=== PATIENT | male | born 1995 | race Two or more races ===

== ENCOUNTER 2016-05-27 18:56 | Emergency (ER) | payer SELFPAY ==
[2016-05-27 19:54] VITALS: BMI 21.2
[2016-05-27 20:16] LABS: AUTOMATED BASOPHIL 0.2 % (0-2); AUTOMATED EOSINOPHIL 0.2 % (0-5); AUTOMATED LYMPH 11.8 % (17-44); AUTOMATED MONOCYTE 8.7 % (3-10); AUTOMATED NEUTROPHIL 79.1 % (45-76); MPV 8.3 fL (7.4-10.4)
[2016-05-27] MEDS ORDERED: ONDANSETRON HCL 4 MG ODT TAB PO ONE (20:29)
--- NOTE | 2016-05-27 20:32 | EDPRACDOC ---
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 STATES WHAT EVER HE DRINKS OR TRIES TO EAT HE VOMITS. Symptoms Occured: Reports: Spontaneous Duration: Reports: Since Onset Emesis: Reports: Bilious, Food Particles Recent: Reports: None Pain Quality: Reports: Cramping (INTERMITTENT MOSTLY WITH PO INTAKE) Pain Severity: Mild Pain Location: Reports: Diffuse Associated Signs and Symptoms: Reports: Fever, Chills, Nausea, Vomiting, Diarrhea Oral Intake: Decreased Urinary Output: Normal <Liana Fish - Last Filed: 05/27/16 20:29> <Bishop Musa - Last Filed: 05/27/16 22:00> - General Information Chief Complaint: Nausea,Vomiting,Diarrhea Stated Complaint: NAUSEATED WITH FEVER & ABD PAIN Time Seen by Provider: 05/27/16 20:24 Home Medications: Home Medications Ondansetron HCl [Zofran] 4 mg PO Q6H PRN #12 tab 05/27/16 Promethazine [Phenergan] 25 mg RI Q6H PRN #12 supp 05/27/16 Allergies/Adverse Reactions: Allergies Allergy/AdvReac Type Severity Reaction Status Date / Time No Known Allergies Allergy Verified 05/27/16 19:54 ED Past Medical History - History Reviewed Yes Nurses notes reviewed and agree except as marked Travel Outside of [place] in the Last 3 Months?: No No Past Medical History: Yes Patient has no past medical history - Patient Medical History Psychological History: Denies: Depression Systemic History: Denies: Cancer Surgical History: Denies: Hysterectomy - Social Medical History Smoking Status: Never smoker ETOH: None Substance Abuse: None Lives With: Other Lives In: Home <Liana Fish - Last Filed: 05/27/16 20:29> EDM Review of Systems - Review of Systems ROS Negative Except as Marked: Yes All systems reviewed and were negative except as marked Constitutional: Chills, Fever, Weakness. negative: Fatigue, Loss of Appetite Eyes: No Symptoms Reported. negative: Redness, Blurred Vision, Double Vision, Discharge, Pain, Light Sensitive, Photophobia Ears: No Symptoms Reported. negative: Pain, Hearing Loss, Drainage, Ear Pulling Throat: No Symptoms Reported. negative: Pain, Swelling Nose: No Symptoms Reported. negative: Congestion, Bleeding, Discharge, Injection, Swelling, Deformity, Ecchymosis, Tender, Abrasion, Laceration Mouth: No Symptoms Reported. negative: Pain, Drooling Respiratory: No Symptoms Reported. negative: Cough, Brassy Cough, Barky Cough, Shortness of Breath, Wheezing, Hemoptysis Cardiovascular: No Symptoms Reported. negative: Chest Pain, Palpitations, Syncope, Edema, Orthopnea, PND, Skin Mottling, Cyanosis Gastrointestinal: Diarrhea, Nausea, Pain (INTERMITTENT CRAMPING WITH PO INTAKE) , Vomiting. negative: Constipation, Formula Intolerance, Melena Genitourinary: No Symptoms Reported. negative: Dysuria, Hematuria, Frequency, Discharge, Bleeding, Testicular Pain, Neurological: No Symptoms Reported. negative: Headache, Dizziness, Seizure, Numbness, Weakness, Speech Difficulty, Gait Difficulty Musculoskeletal: No Symptoms Reported. negative: Neck, Chestwall, Ribs, Back, Shoulder, Arm, Elbow, Forearm, Wrist, Hand, Pelvis, Hip, Femur, Knee, Leg, Ankle , Foot Integumentary: No Symptoms Reported. negative: Itching, Rash, Bruising, Wound Allergic/Immunologic: No Symptoms Reported. negative: Hives, Itching Hematologic: No Symptoms Reported. negative: Lymphadenopathy, Easy Bruising, Easy Bleeding Endocrine: No Symptoms Reported. negative: Weight Gain, Weight Loss Psychiatric: No Symptoms Reported. negative: Anxiety, Depression, Hallucinations, Insomnia, Suicidal <Liana Fish - Last Filed: 05/27/16 20:29> - Physical Exam Constitutional: No apparent distress, Alert (Awake) Oriented to: Time, Person, Place Last recorded Vital Signs: Last Vital Signs Temp 100.3 F 05/27/16 19:52 Pulse 75 05/27/16 20:13 Resp 18 05/27/16 20:13 BP 113/64 05/27/16 20:13 Pulse Ox 98 05/27/16 20:13 Oxygen Pulse Oxygen Saturation 98 O2 Device Room Air Oxygen Flow Rate Fraction of Inspired Oxygen ( FIO2) - HEENT Head: Normal ( normocephalic) Eye Exam: Normal (PERRL, EOMI, Sclera white) Oropharynx: Normal (Pharynx:Moist without exudate,Gums-no swelling) Tympanic Membrane: Normal ENT EAC: Normal TMJ: Normal Nose: No Symptoms Reported (septum midline) Neck: Normal (FROM, trachea at midline) - Respiratory/Cardiovascular Respiratory: Normal - CTA (BBS clear to auscultation without adventitious sounds ) Cardiovascular: Normal (RRR without murmur, gallop or rub) - GI Auscultation: Normal (NABS) Palpation: Normal (Soft,No rebound or guarding, non distended) Tenderness: Non tender Grace's Sign: Negative - Bladder: Normal - Musculoskeletal Back: Normal (Non-Tender) Extremities: Normal (Normal tone, Pulses 2+ No cyanosis or edema, FROM) - Integumentary Skin: Normal, Warm, Dry Lymphatics: Normal (no adenopathy) - Neurologic Memory Impaired: Normal Motor Function: Normal (Normal tone, Pulses 2+ No cyanosis or edema, FROM) Cranial Nerve: Normal (CN II-X11 intact sensation, strength 5/5) Cerebellar: Normal Mood Description: Normal Perception: Normal <Liana Fish - Last Filed: 05/27/16 20:29> - Physical Exam Last recorded Vital Signs: Last Vital Signs Temp 100.5 F 05/27/16 20:43 Pulse 84 05/27/16 21:13 Resp 18 05/27/16 20:43 BP 105/63 05/27/16 21:13 Pulse Ox 98 05/27/16 20:43 Oxygen Pulse Oxygen Saturation 98 O2 Device Room Air Oxygen Flow Rate Fraction of Inspired Oxygen ( FIO2) <Bishop Musa - Last Filed: 05/27/16 22:00> - Differential Diagnosis Diarrhea Viral, Food poisoning, Gastritis, Gastroenteritis - Results 05/27/16 19:54 05/27/16 19:54 WBC 9.1 xk/uL (3.8-10.8) 05/27/16 19:54 RBC 5.79 xM/uL (4.20-5.40) H 05/27/16 19:54 Hgb 16.1 g/dL (12.0-16.0) H 05/27/16 19:54 Hct 47.5 % (36-47) H 05/27/16 19:54 MCV 82 fL (81-99) 05/27/16 19:54 MCH 27.8 pg (27-32) 05/27/16 19:54 MCHC 33.9 g/dl (33-36) 05/27/16 19:54 RDW 13.7 % (11.5-14.5) 05/27/16 19:54 Plt Count 239 xk/uL (130-400) 05/27/16 19:54 MPV 8.3 fL (7.4-10.4) 05/27/16 19:54 Neut % (Auto) 79.1 % (45-76) H 05/27/16 19:54 Lymph % (Auto) 11.8 % (17-44) L 05/27/16 19:54 [place] % (Auto) 8.7 % (3-10) 05/27/16 19:54 Eos % (Auto) 0.2 % (0-5) 05/27/16 19:54 Baso % (Auto) 0.2 % (0-2) 05/27/16 19:54 Absolute Neuts (auto) 7.19 xk/uL (1.7-8.2) 05/27/16 19:54 Absolute Lymphs (auto) 1.00 xk/uL (0.65-4.75) 05/27/16 19:54 Lab Results 05/27/16 19:54 WBC 9.1 RBC 5.79 H Hgb 16.1 H Hct 47.5 H MCV 82 MCH 27.8 MCHC 33.9 RDW 13.7 Plt Count 239 MPV 8.3 Neut % (Auto) 79.1 H Lymph % (Auto) 11.8 L [place] % (Auto) 8.7 Eos % (Auto) 0.2 Baso % (Auto) 0.2 Absolute Neuts (auto) 7.19 Absolute Lymphs (auto) 1.00 <Liana Fish - Last Filed: 05/27/16 20:29> - Re-evaluation Re-evaluation 1 Re-evaluation Time: 21:58 ABDOMEN SOFT, NONTENDER. APPY TALK GIVEN. - Results 05/27/16 19:54 05/27/16 19:54 WBC 9.1 xk/uL (3.8-10.8) 05/27/16 19:54 RBC 5.79 xM/uL (4.20-5.40) H 05/27/16 19:54 Hgb 16.1 g/dL (12.0-16.0) H 05/27/16 19:54 Hct 47.5 % (36-47) H 05/27/16 19:54 MCV 82 fL (81-99) 05/27/16 19:54 MCH 27.8 pg (27-32) 05/27/16 19:54 MCHC 33.9 g/dl (33-36) 05/27/16 19:54 RDW 13.7 % (11.5-14.5) 05/27/16 19:54 Plt Count 239 xk/uL (130-400) 05/27/16 19:54 MPV 8.3 fL (7.4-10.4) 05/27/16 19:54 Neut % (Auto) 79.1 % (45-76) H 05/27/16 19:54 Lymph % (Auto) 11.8 % (17-44) L 05/27/16 19:54 [place] % (Auto) 8.7 % (3-10) 05/27/16 19:54 Eos % (Auto) 0.2 % (0-5) 05/27/16 19:54 Baso % (Auto) 0.2 % (0-2) 05/27/16 19:54 Absolute Neuts (auto) 7.19 xk/uL (1.7-8.2) 05/27/16 19:54 Absolute Lymphs (auto) 1.00 xk/uL (0.65-4.75) 05/27/16 19:54 Sodium 136 mEq/L (137-146) L 05/27/16 19:54 Potassium 3.8 mEq/L (3.5-5.1) 05/27/16 19:54 Chloride 97 mEq/L (98-107) L 05/27/16 19:54 Carbon Dioxide 25 mMOL/L (22-33) 05/27/16 19:54 Anion Gap 18 mEq/L (8-16) H 05/27/16 19:54 BUN 12 MG/DL (9-20) 05/27/16 19:54 Creatinine 1.00 MG/DL (0.66-1.25) 05/27/16 19:54 Estimated GFR (MDRD) > 60 mL/min (>=60) 05/27/16 19:54 Glucose 129 MG/DL (70-99) H 05/27/16 19:54 Calculated Osmolality 264 MOs/Kg (270-290) L 05/27/16 19:54 Calcium 9.2 MG/DL (8.4-10.2) 05/27/16 19:54 Total Bilirubin 2.9 MG/DL (0.2-1.3) H 05/27/16 19:54 AST 25 IU/L (17-59) 05/27/16 19:54 ALT 29 IU/L (21-72) 05/27/16 19:54 Alkaline Phosphatase 67 IU/L (38-126) 05/27/16 19:54 Total Protein 7.9 G/DL (6.3-8.2) 05/27/16 19:54 Albumin 4.5 G/DL (3.5-5.0) 05/27/16 19:54 Lipase 30 U/L (23-300) 05/27/16 19:54 Urine Color Dark yellow 05/27/16 21:19 Urine Clarity Sl hzy 05/27/16 21:19 Urine pH 6.0 (5.0-8.0) 05/27/16 21:19 Ur Specific [place] 1.025 (1.003-1.035) 05/27/16 21:19 Urine Protein 1+ (NEG/TRACE) H 05/27/16 21:19 Urine Glucose (UA) Neg (NEGATIVE) 05/27/16 21:19 Urine Ketones Neg (NEGATIVE) 05/27/16 21:19 Urine Occult Blood Neg (NEG/TRACE) 05/27/16 21:19 Urine Nitrite Neg (NEGATIVE) 05/27/16 21:19 Urine Bilirubin Neg (NEGATIVE) 05/27/16 21:19 Urine Urobilinogen 2 MG/DL (0-1) H 05/27/16 21:19 Ur Leukocyte Esterase Neg (NEGATIVE) 05/27/16 21:19 Urine RBC 2-5 (0-2) H 05/27/16 21:19 Urine WBC 0-2 (0-2) 05/27/16 21:19 Ur Epithelial Cells 1+ 05/27/16 21:19 Hyaline Casts 0-2 (0-2) 05/27/16 21:19 Urine Mucus Mod (NEG/OCC) H 05/27/16 21:19 Lab Results 05/27/16 05/27/16 05/27/16 21:19 19:54 19:54 WBC 9.1 RBC 5.79 H Hgb 16.1 H Hct 47.5 H MCV 82 MCH 27.8 MCHC 33.9 RDW 13.7 Plt Count 239 MPV 8.3 Neut % (Auto) 79.1 H Lymph % (Auto) 11.8 L [place] % (Auto) 8.7 Eos % (Auto) 0.2 Baso % (Auto) 0.2 Absolute Neuts (auto) 7.19 Absolute Lymphs (auto) 1.00 Sodium 136 L Potassium 3.8 Chloride 97 L Carbon Dioxide 25 Anion Gap 18 H BUN 12 Creatinine 1.00 Estimated GFR (MDRD) > 60 Glucose 129 H Calculated Osmolality 264 L Calcium 9.2 Total Bilirubin 2.9 H AST 25 ALT 29 Alkaline Phosphatase 67 Total Protein 7.9 Albumin 4.5 Lipase 30 Urine Color Dark yellow Urine Clarity Sl hzy Urine pH 6.0 Ur Specific [place] 1.025 Urine Protein 1+ H Urine Glucose (UA) Neg Urine Ketones Neg Urine Occult Blood Neg Urine Nitrite Neg Urine Bilirubin Neg Urine Urobilinogen 2 H Ur Leukocyte Esterase Neg Urine RBC 2-5 H Urine WBC 0-2 Ur Epithelial Cells 1+ Hyaline Casts 0-2 Urine Mucus Mod H <Bishop Musa - Last Filed: 05/27/16 22:00> <Liana Fish - Last Filed: 05/27/16 20:29> Decision Time to Discharge: 21:59 - Departure Yes I personally saw and evaluated the patient. Disposition: Home Education/Counseling Given To: Patient Education/Counseling Given Regarding: Diagnosis, Treatment <Bishop Musa - Last Filed: 05/27/16 22:00> - Departure Condition: Stable Final Diagnosis: Nausea and vomiting Instructions: Acute Nausea and Vomiting (ED) Referrals: None,No Provider [Primary Care Provider] - One Week Prescriptions: Ondansetron HCl [Zofran] 4 mg PO Q6H PRN #12 tab PRN Reason: Nausea/Vomiting Promethazine [Phenergan] 25 mg RI Q6H PRN #12 supp PRN Reason: Nausea/Vomiting Forms: Excuse Note
[2016-05-27 20:41] LABS: BLOOD UREA NITROGEN 12 MG/DL (9-20); CALCIUM 9.2 MG/DL (8.4-10.2); CALCULATED OSMOLALITY 264 MOs/Kg (270-290); CHLORIDE 97 mEq/L (98-107); GLUCOSE 129 MG/DL (70-99); SODIUM LEVEL 136 mEq/L (137-146); TOTAL PROTEIN 7.9 G/DL (6.3-8.2)
[2016-05-27 21:40] LABS: LEUKOCYTES/URINE NEG (NEGATIVE); NITRITE/URINE NEG (NEGATIVE); URINE OCCULT BLOOD NEG (NEG/TRACE); WBC/URINE 0-2 (0-2)
[2016-05-27 22:18] VITALS: BP 108/60; PULSE 87; TEMP 99.1
== END 2016-05-27 22:16 | disposition home or self-care (01) ==
LOC: EDSEX 18:56 → ED 18:56
DX: R11.2 Nausea with vomiting, unspecified (principal)
CPT/HCPCS: 36415; 80053; 81001; 83690; 85025; 99283; J3490